=== PATIENT | female | born 1975 | race Caucasian/White ===

== ENCOUNTER 2020-09-27 09:57 | Emergency (ER) | payer OTHER ==
[~2020-09-27] VITALS: Ht 180.3 cm; Wt 92.5 kg
[2020-09-27] MEDS ORDERED: EUTHYROX175 MCG PO (10:11)
== END 2020-09-27 10:42 | disposition home or self-care (01) ==
LOC: ER 09:57
DX: J04.0 Acute laryngitis (principal); F17.200 Nicotine dependence, unspecified, uncomplicated; Z79.899 Other long term (current) drug therapy
CPT/HCPCS: 99282; A9270; J1100